=== PATIENT | male | born 1975 ===

== ENCOUNTER 2021-06-25 10:30 | Outpatient (REF) | payer OTHER, MEDICAID, SELFPAY ==
[2021-06-27 12:10] LABS: COVID-19 RT-PCR UVMMC Result Negative (Negative)
== END 2021-06-25 10:31 | disposition home or self-care (01) ==
LOC: NCHCN 10:30
PROVIDERS: Visit Provider Internal Medicine
DX: Z20.822 Contact with and (suspected) exposure to COVID-19 (principal)
CPT/HCPCS: U0003